=== PATIENT | male | born 1990 | race Caucasian/White ===

== ENCOUNTER → 2021-08-12 16:34 | Outpatient (CLI) | payer OTHER, SELFPAY ==
[2021-08-14 12:27] LABS: HIV Screen 4th Generation wRfx Non Reactive (Non Reactive); Hep A Ab, IgM Negative (Negative); Hepatitis B Core Antibody IgM Negative (Negative); Hepatitis B Surface Antigen Negative (Negative); Hepatitis C Antibody <0.1 s/co ratio (0.0-0.9)
== END ==
PROVIDERS: PCP Student in an Organized Health Care Education/Training Program; Visit Provider Student in an Organized Health Care Education/Training Program
DX: Z77.21 Contact with and (suspected) exposure to potentially hazardous body fluids (principal)
CPT/HCPCS: 80074; 86703; G0432

== ENCOUNTER → 2021-11-29 13:39 | Outpatient (CLI) | payer OTHER, SELFPAY ==
[2021-12-01 11:12] LABS: HIV Screen 4th Generation wRfx Non Reactive (Non Reactive)
[2021-12-01 13:31] LABS: Hep A Ab, IgM Negative (Negative); Hepatitis B Core Antibody IgM Negative (Negative); Hepatitis B Surface Antigen Negative (Negative); Hepatitis C Antibody <0.1 s/co ratio (0.0-0.9)
== END ==
PROVIDERS: Visit Provider Emergency Medicine
DX: Z77.21 Contact with and (suspected) exposure to potentially hazardous body fluids (principal)
CPT/HCPCS: 36415; 86703; 86704; 86708; 87340; 87380; G0432

== ENCOUNTER 2021-12-13 10:48 | Observation (INO) | payer OTHER, SELFPAY ==
[2021-12-13] VITALS (28 sets, daily range): BP systolic 112–150; BP diastolic 54–95; PULSE 56–103; RESP 14–20; TEMP 36.4–43; O2SAT 91–98; BMI 28.2; BMI 28.3; BMI 28.5
--- NOTE | 2021-12-13 11:43 | HMH.EDUTC ---
[facility] [place] Disposition Clinical Impression: Acute appendicitis Qualifiers: Acute appendicitis type: with localized peritonitis Appendicitis gangrene presence: without gangrene Appendicitis perforation presence: without perforation Appendicitis abscess presence: without abscess Qualified Code(s): K35.30 - Acute appendicitis with localized peritonitis, without perforation or gangrene Disposition: Still a Patient Condition on Discharge: Good Referrals: Provider,Referral, [Primary Care Provider] - Medical Decision Making - Cuong Inquiry Pt receiving controlled substance: No Cuong was queried for this patient: No Vital Signs: 12/13/21 11:19 12/13/21 12:47 12/13/21 12:48 Temperature 99.0 F 99 F Temperature Source Oral Oral Pulse Rate Pulse Rate [Left Radial] 80 72 Respiratory Rate 18 14 Blood Pressure 150/84 H Blood Pressure [Left Arm] 133/79 150/84 H Blood Pressure Mean 97 Blood Pressure Mean [Left Arm] 97 106 Blood Pressure Source [Left Arm] Automatic Cuff Blood Pressure Position [Left Arm] Sitting Sitting 02 Sat by Pulse Oximetry 98 98 Oxygen Delivery Method Room Air Room Air 12/13/21 13:01 12/13/21 13:30 12/13/21 13:55 Temperature Temperature Source Pulse Rate 56 L Pulse Rate [Left Radial] Respiratory Rate Blood Pressure 122/54 L 120/60 120/60 Blood Pressure [Left Arm] Blood Pressure Mean 85 80 Blood Pressure Mean [Left Arm] Blood Pressure Source [Left Arm] Blood Pressure Position [Left Arm] 02 Sat by Pulse Oximetry Oxygen Delivery Method - Lab Data Lab Results 12/13/21 12:33: Urine Color Yellow, Urine Appearance Clear, Urine pH 6.0, Ur Specific [place] >= 1.030, Urine Protein Negative, Urine Glucose (UA) Negative, Urine Ketones Negative, Urine Blood Negative, Urine Nitrate Negative, Urine Bilirubin Negative, Urine Urobilinogen 2.0, Ur Leukocyte Esterase Negative, Urine RBC Occasional, Urine WBC None, Ur Squamous Epith Cells Occasional, Urine Bacteria Trace 12/13/21 12:33: WBC 7.1, RBC 5.60, Hgb 17.0, Hct 48.2, MCV 86.1, MCH 30.4, MCHC 35.4, RDW 12.7, Plt Count 297, MPV 8.2, Neut % (Auto) 70.2, Lymph % (Auto) 19.8, [place] % (Auto) 7.0, Eos % (Auto) 2.3, Baso % (Auto) 0.7, Neut # (Auto) 5.0, Lymph # (Auto) 1.4, [place] # (Auto) 0.5, Eos # (Auto) 0.2, Baso # (Auto) 0.1 12/13/21 12:33: Sodium 141, Potassium 4.1, Chloride 102, Carbon Dioxide 31 H, Anion Gap 12.1, BUN 12, Creatinine 1.10, Estimated Creat Clear 137, Estimated GFR 78, Est GFR ( Amer) 94, Glucose 103 H, Calcium 8.7, Total Bilirubin 0.8, AST 48, ALT 61, Alkaline Phosphatase 82, Total Protein 7.8, Albumin 4.8, Globulin 3.0, Albumin/Globulin Ratio 1.6, Amylase 87, Lipase 250 12/13/21 14:08: SARS-CoV-2 (PCR) Not detected, Influenza A Untype (PCR) Not detected, Influenza Type B (PCR) Not detected Result diagrams: 12/13/21 12:33 12/13/21 12:33 Orders (Tests/Meds): ED MEDICATIONS Generic Name Dose Route Start Last Admin Trade Name Freq PRN Reason Stop Dose Admin Sodium Chloride 10 ml 12/13/21 12:11 Sodium Chloride 0.9% 10ml Flush Syringe IV 01/12/22 12:10 NEEDED PRN Maintain IV Site Discontinued Medications Generic Name Dose Route Start Last Admin Trade Name Freq PRN Reason Stop Dose Admin Sodium Chloride 1,000 mls @ 999 mls/hr 12/13/21 12:14 12/13/21 12:48 Sod Chlor 0.9% 1000ml Bag IV 12/13/21 13:14 999 mls/hr .Q1H1M ONE Administration Iopamidol 75 ml 12/13/21 12:44 12/13/21 12:45 Iopamidol-370 (76%);100ml Bottle IV 12/13/21 12:45 75 ml ONCE ONE Administration Ondansetron HCl 4 mg 12/13/21 12:14 12/13/21 12:48 Ondansetron 4mg/2ml Vial IV 12/13/21 12:15 4 mg ONCE ONE Administration Sodium Chloride 10 ml 12/13/21 12:44 12/13/21 12:45 Sodium Chloride 0.9% 10ml Syr (Rad Only) IV 12/13/21 12:45 10 ml ONCE ONE Administration ORDERS Category Date Time Status Consult to General Surgery [CONS] Stat Cons 12/13/21 14:24
--- NOTE | 2021-12-13 12:10 | PC.NURSE ---
Sent to ED for further eval. Report given to Liya Tellez,RN
--- NOTE | 2021-12-13 12:11 | CT_ITS ---
FINAL REPORT TECHNIQUE: After the administration of oral and intravenous contrast, axial images were obtained through the abdomen and pelvis by computed tomography. The study was performed with techniques to keep radiation dose as low as reasonably achievable, (ALARA). Individual dose reduction techniques using automated exposure control or adjustment of mA and/or kV according to the patient's size were employed. CLINICAL HISTORY: RLQ pain, nausea, dark stool FINDINGS: Abdomen: The lung bases are clear. The liver parenchyma is homogeneous. The gallbladder is present. The spleen, pancreas, adrenals and kidneys appear unremarkable. The aorta is normal in caliber. There is no free fluid or adenopathy. There is a minimal sliding-type hiatal hernia. Pelvis: The appendix is abnormally enlarged measuring 1.4 cm in diameter with surrounding inflammatory reaction. Findings are consistent with acute uncomplicated appendicitis. The urinary bladder is unremarkable. There is no free fluid or adenopathy. IMPRESSION: Acute uncomplicated appendicitis. Prompt surgical evaluation is recommended. Reviewed, Interpreted and Dictated by Marcial Caldera MD Transcribed by Radha Alston Authenticated by Marcial Caldera MD on 12/13/2021 01:57:05 PM [facility]
--- NOTE | 2021-12-13 12:42 | PC.NURSE ---
Patient in Radiology
[2021-12-13 12:43] LABS: Appearance,Urine CLEAR (Clear); Bilirubin,Urine Negative (Negative); Blood, Urine Negative (Negative); Color,Urine YELLOW (Yellow); Glucose,Urine (UA) Negative (Negative); Ketones,Urine Negative (Negative); Leukocyte Esterase,Urine Negative (Negative); Microscopic, Urine URINE MICROSCOPIC (MICROSCOPIC); Nitrate,Urine Negative (Negative); Protein,Urine Negative (Negative); Specific Gravity, Urine >= 1.030 (1.005-1.030)
--- NOTE | 2021-12-13 12:44 | PC.NURSE ---
Patient back from radiology
[2021-12-13 12:46] LABS: Basophils # 0.1 K/mm3 (0-0.2); Basophils % 0.7 % (0.1-2.0); Eosinophils # 0.2 K/mm3 (0.0-0.4); Eosinophils % 2.3 % (0.1-12.0); Hematocrit 48.2 % (42.0-52.0); Lymphocytes # 1.4 K/mm3 (0.7-4.5); Lymphocytes % 19.8 % (10-50); Mean Corpuscular HGB Conc 35.4 g/dL (31.8-35.4); Mean Corpuscular Hemoglobin 30.4 pg (27.0-31.2); Mean Corpuscular Volume 86.1 fl (80-94); Mean Platelet Volume 8.2 fl (7.4-10.4); Monocytes # 0.5 K/mm3 (0.1-1.0); Neutrophils % 70.2 % (37.0-80.0); Platelet Count 297 K/mm3 (142-424); Red Cell Distribution Width 12.7 % (11.5-17.5); White Blood Count 7.1 K/mm3 (4.8-10.8)
[2021-12-13 12:54] LABS: Alanine Aminotransferase 61 U/L (12-78); Albumin Level 4.8 g/dl (3.5-5.0); Albumin/Globulin Ratio 1.6 (1.1-1.8); Alkaline Phosphatase 82 U/L (38-126); Amylase 87 U/L (30-110); Anion Gap 12.1 mEq/L (5-15); Aspartate Amino Transferase 48 U/L (17-59); Bilirubin,Total 0.8 mg/dl (0.2-1.3); Blood Urea Nitrogen 12 mg/dl (9-20); Calcium 8.7 mg/dl (8.4-10.2); Carbon Dioxide 31 mmol/L (22.0-30.0); Chloride 102 mmol/L (98-107); Creatinine Clearance Estimated 137 mL/min (50-200); Estimated Glomerular Filt Rate 78 ml/min (>60); GFR (African American) 94 ML/MIN (>60); Glucose 103 mg/dl (74-100); Lipase 250 U/L (23-300); Potassium 4.1 mmoL/L (3.5-5.1); Sodium 141 mmol/L (136-145); Total Protein,Serum 7.8 g/dl (6.3-8.2)
[2021-12-13 13:04] LABS: Bacteria,Urine Trace /lpf; RBC,Urine Occasional #/hpf (0-3); Squamous Epithelial Cell,Urine Occasional #/hpf (0-5)
--- NOTE | 2021-12-13 13:10 | HMH.EDGENADL ---
ED Disposition Clinical Impression: Acute appendicitis Qualifiers: Acute appendicitis type: with localized peritonitis Appendicitis gangrene presence: without gangrene Appendicitis perforation presence: without perforation Appendicitis abscess presence: without abscess Qualified Code(s): K35.30 - Acute appendicitis with localized peritonitis, without perforation or gangrene Disposition: Still a Patient Condition on Discharge: Fair Referrals: Provider,Referral, [Primary Care Provider] - - Critical Care Critical Care Time: No Attestation: On 12/13/21, the high probability of a clinically significant, sudden or life threatening deterioration of the following system(s) required my full and direct attention, intervention and personal management. The time I documented below is in addition to time spent performing reported procedures but includes the following listed in this critical care notation. Medical Decision Making - Cuong Inquiry Pt receiving controlled substance: No Vital Signs: 12/13/21 11:19 12/13/21 12:47 12/13/21 12:48 Temperature 99.0 F 99 F Temperature Source Oral Oral Pulse Rate Pulse Rate [Left Radial] 80 72 Respiratory Rate 18 14 Blood Pressure 150/84 H Blood Pressure [Left Arm] 133/79 150/84 H Blood Pressure Mean 97 Blood Pressure Mean [Left Arm] 97 106 Blood Pressure Source [Left Arm] Automatic Cuff Blood Pressure Position [Left Arm] Sitting Sitting 02 Sat by Pulse Oximetry 98 98 Oxygen Delivery Method Room Air Room Air 12/13/21 13:01 12/13/21 13:30 12/13/21 13:55 Temperature Temperature Source Pulse Rate 56 L Pulse Rate [Left Radial] Respiratory Rate Blood Pressure 122/54 L 120/60 120/60 Blood Pressure [Left Arm] Blood Pressure Mean 85 80 Blood Pressure Mean [Left Arm] Blood Pressure Source [Left Arm] Blood Pressure Position [Left Arm] 02 Sat by Pulse Oximetry Oxygen Delivery Method - Lab Data Lab Results 12/13/21 12:33: Urine Color Yellow, Urine Appearance Clear, Urine pH 6.0, Ur Specific [place] >= 1.030, Urine Protein Negative, Urine Glucose (UA) Negative, Urine Ketones Negative, Urine Blood Negative, Urine Nitrate Negative, Urine Bilirubin Negative, Urine Urobilinogen 2.0, Ur Leukocyte Esterase Negative, Urine RBC Occasional, Urine WBC None, Ur Squamous Epith Cells Occasional, Urine Bacteria Trace 12/13/21 12:33: WBC 7.1, RBC 5.60, Hgb 17.0, Hct 48.2, MCV 86.1, MCH 30.4, MCHC 35.4, RDW 12.7, Plt Count 297, MPV 8.2, Neut % (Auto) 70.2, Lymph % (Auto) 19.8, [place] % (Auto) 7.0, Eos % (Auto) 2.3, Baso % (Auto) 0.7, Neut # (Auto) 5.0, Lymph # (Auto) 1.4, [place] # (Auto) 0.5, Eos # (Auto) 0.2, Baso # (Auto) 0.1 12/13/21 12:33: Sodium 141, Potassium 4.1, Chloride 102, Carbon Dioxide 31 H, Anion Gap 12.1, BUN 12, Creatinine 1.10, Estimated Creat Clear 137, Estimated GFR 78, Est GFR ( Amer) 94, Glucose 103 H, Calcium 8.7, Total Bilirubin 0.8, AST 48, ALT 61, Alkaline Phosphatase 82, Total Protein 7.8, Albumin 4.8, Globulin 3.0, Albumin/Globulin Ratio 1.6, Amylase 87, Lipase 250 Result diagrams: 12/13/21 12:33 12/13/21 12:33 Orders (Tests/Meds): ED MEDICATIONS Generic Name Dose Route Start Last Admin Trade Name Freq PRN Reason Stop Dose Admin Sodium Chloride 10 ml 12/13/21 12:11 Sodium Chloride 0.9% 10ml Flush Syringe IV 01/12/22 12:10 NEEDED PRN Maintain IV Site Discontinued Medications Generic Name Dose Route Start Last Admin Trade Name Freq PRN Reason Stop Dose Admin Sodium Chloride 1,000 mls @ 999 mls/hr 12/13/21 12:14 12/13/21 12:48 Sod Chlor 0.9% 1000ml Bag IV 12/13/21 13:14 999 mls/hr .Q1H1M ONE Administration Iopamidol 75 ml 12/13/21 12:44 12/13/21 12:45 Iopamidol-370 (76%);100ml Bottle IV 12/13/21 12:45 75 ml ONCE ONE Administration Ondansetron HCl 4 mg 12/13/21 12:14 12/13/21 12:48 Ondansetron 4mg/2ml Vial IV 12/13/21 12:15 4 mg ONCE ONE Administratio
[2021-12-13 14:11] LABS: Coronavirus 19, PCR Not Detected (NotDetected); Influenza A, PCR Not Detected (NotDetected); Influenza B, PCR Not Detected (NotDetected)
--- NOTE | 2021-12-13 14:16 | PC.NURSE ---
MD at bedside for POC; corrosion control technician surgeon paged
--- NOTE | 2021-12-13 14:21 | PC.NURSE ---
Patient ambulatory to restroom
--- NOTE | 2021-12-13 14:41 | PC.NURSE ---
on phone with Dr. Davis
--- NOTE | 2021-12-13 16:12 | HMH.ANESCL ---
[facility] Anesthesia Checklist - Patient Identification Patient Identification: Arm Band - Structural Data Admitted From: Emergency Dept Planned Operative Procedure/s: Lap. appendectomy Consent for Planned Operative Procedure(s) Verified: Yes - NPO Status Verified Time NPO: 00:00 - Airway Assessment C-Spine Mobility Assessed: Yes TMJ Mobility Assessed: Yes Dentition: Good Dentition - Neurological Assessment Level of Consciousness: Awake Hx Seizures: No Numbness or tingling in extremities: No - Anesthesia Plan Anesthesia Risk discussed: Yes Anesthesia Plan: Verified ASA Class: I Anesthesia Type: General [facility] History I have reviewed the patient's past medical history: Yes *Have you ever received a pneumonia vaccine?: No *Have you received a flu vaccine this season?: No Anesthesia experience/problems:: None - *Social History Smoking Status: Never smoker Alcohol Intake: current Substance Use Type: denies use *Occupational Status:: employed *Travel in the last 8 weeks: None Family Hx:: Unable to obtain
--- NOTE | 2021-12-13 17:03 | HMH.GSHP ---
HPI HPI: This is a 30-year-old gentleman who presented to emergency department with increasing right lower quadrant abdominal pain. Radiographic evidence consistent with appendicitis was noted per CT scan. The surgical service was consulted for evaluation and management. [facility] History Medical History: Denies:: Seizures *Have you ever received a pneumonia vaccine?: No *Have you received a flu vaccine this season?: No Anesthesia experience/problems:: None - *Social History Smoking Status: Never smoker Alcohol Intake: current Substance Use Type: denies use *Occupational Status:: employed *Travel in the last 8 weeks: None Family Hx:: Unable to obtain Review of Systems - Constitutional Denies chills - Eyes Denies change in vision - ENT Denies difficulty swallowing - *Cardiovascular Denies chest pain - *Respiratory Denies cough - *Gastrointestinal Reports abdominal pain, Reports nausea - *Genitourinary Denies difficulty urinating - *Musculoskeletal Denies abnormal walking - Integumentary/Breasts Denies new lesions - *Neurologic Denies behavioral changes - Psychiatric Denies anxiety - Endocrine Denies cold intolerance - Hematologic/Lymphatic Denies easy bleeding - Allergic/Immunologic Denies GI upset with certain foods Meds Home Medications Medication Instructions Recorded Confirmed Type No Known Home Medications 12/13/21 12/13/21 History Allergies Allergy/AdvReac Type Severity Reaction Status Date / Time No Known Allergies Allergy Verified 12/13/21 14:58 Exam Vital signs and Labs for Last 24 Hours: Temp Pulse Resp BP Pulse Ox 99 F 78 16 112/78 98 12/13/21 14:48 12/13/21 14:48 12/13/21 14:48 12/13/21 14:48 12/13/21 12:48 Laboratory Results - last 24 hr 12/13/21 12:33: Urine Color Yellow, Urine Appearance Clear, Urine pH 6.0, Ur Specific [place] >= 1.030, Urine Protein Negative, Urine Glucose (UA) Negative, Urine Ketones Negative, Urine Blood Negative, Urine Nitrate Negative, Urine Bilirubin Negative, Urine Urobilinogen 2.0, Ur Leukocyte Esterase Negative, Urine RBC Occasional, Urine WBC None, Ur Squamous Epith Cells Occasional, Urine Bacteria Trace 12/13/21 12:33: WBC 7.1, RBC 5.60, Hgb 17.0, Hct 48.2, MCV 86.1, MCH 30.4, MCHC 35.4, RDW 12.7, Plt Count 297, MPV 8.2, Neut % (Auto) 70.2, Lymph % (Auto) 19.8, [place] % (Auto) 7.0, Eos % (Auto) 2.3, Baso % (Auto) 0.7, Neut # (Auto) 5.0, Lymph # (Auto) 1.4, [place] # (Auto) 0.5, Eos # (Auto) 0.2, Baso # (Auto) 0.1 12/13/21 12:33: Sodium 141, Potassium 4.1, Chloride 102, Carbon Dioxide 31 H, Anion Gap 12.1, BUN 12, Creatinine 1.10, Estimated Creat Clear 137, Estimated GFR 78, Est GFR ( Amer) 94, Glucose 103 H, Calcium 8.7, Total Bilirubin 0.8, AST 48, ALT 61, Alkaline Phosphatase 82, Total Protein 7.8, Albumin 4.8, Globulin 3.0, Albumin/Globulin Ratio 1.6, Amylase 87, Lipase 250 12/13/21 14:08: SARS-CoV-2 (PCR) Not detected, Influenza A Untype (PCR) Not detected, Influenza Type B (PCR) Not detected I & O for Last 24 hours: Intake & Output 12/11/21 12/12/21 12/13/21 12/14/21 11:59 11:59 11:59 11:59 Weight 220 lb 221 lb - Constitutional no acute distress - *Routine HEENT Exam Head: Present: normocephalic Eye: Present: EOMI ENT: Present: mucous membranes moist - *Routine Neck Exam Present: full ROM - Routine Chest/Breast/Axilla Exam Chest wall: Absent: tenderness - *Routine Respiratory Exam Absent: respiratory distress - *Routine Cardiovascular Exam Present: RRR - *Routine Abdominal Exam Present: soft, tenderness - *Routine Rectal Exam Rectal:: deferred - *Routine Genitalia Exam Genitalia:: deferred - *Routine Extremities Exam Present: full ROM - Routine Back/Spine/Pelvis Exam Back/Spine: Present: full ROM - *Routine Skin Exam Present: intact - *Routine Neurological Exam Present: alert, oriented X3 - Routine Psychiatric Exam Present: normal affect Result
--- NOTE | 2021-12-13 17:06 | HMH.OPNOTE ---
Date of procedure: 12/13/21 Pre-op Diagnosis:: Appendicitis Post-op Diagnosis:: Suppurative appendicitis Procedure performed:: Laparoscopic appendectomy Surgeon:: Pavna Davis MD ECOTHERAPIST:: Sue Cain Anesthesia: GETA Estimated blood loss (mL): 15 Operative findings:: Severe suppurative appendicitis No definitive perforation Dense adhesions between appendix and cecum Dense adhesions between appendix and small bowel Dense adhesions between cecum and lateral sidewall Operative note:: After informed consent was obtained the patient was taken to the operating room and placed in the supine position. General anesthesia was induced and his abdomen was prepped and draped in a sterile fashion. After infiltration local anesthetic a supraumbilical incision was made. A Veress needle was placed in position. The abdomen was insufflated. A 12 mm optical trocar was placed in position. Under direct visualization a 5 mm trocar was placed in the suprapubic position and an additional 5 mm trocar was placed in the left lower quadrant. Severe inflammatory changes throughout the right lower abdomen noted. The cecum and right colon were densely adhered to the lateral sidewall. The appendix was thickened and severely inflamed and essentially encased and inflammatory changes between the cecum and small bowel. Elevation of the appendix was exceptionally difficult. No obvious small bowel or colonic injury noted. No obvious injury to the ureter. A combination of blunt dissection and harmonic german were utilized to free the mesoappendix with continued elevation of the appendix. The junction of the appendix and the cecum was not mobile secondary to above-stated dense adhesions. The [place] stapling device was utilized to transect the appendix at its base. Again, no obvious cecal injury noted. The appendix was placed in a retrieval bag and removed through the supraumbilical trocar site. The right lower quadrant and pelvis were thoroughly irrigated. No active bleeding or sign of injury noted. No apparent abscess collections. Pneumoperitoneum was released as the trocars were removed. Fascia at the supraumbilical trocar site was reapproximated with 0 Ethibond. All wounds were irrigated and skin was closed with 4-0 Monocryl. Dressings were applied and the patient was transferred to recovery in stable condition. Condition: stable Disposition: PACU Specimens:: Appendix Complications:: No immediate
--- NOTE | 2021-12-13 17:13 | HMH.ANESI ---
[facility] Anesthesia Record Part I Intake, IV Amount: 900 Estimated blood loss (mL): 15 Urine output (mL): 150 Blood Pressure: 127/84 SaO2: 95 Pulse Rate: 72 Respiratory Rate: 20 Temperature: 97.8 F Patient is:: Drowsy, Oral/Nasal airway Stable to PACU at:: 17:11
--- NOTE | 2021-12-13 18:12 | PC.NURSE ---
Report received from Anjelica GREENBERG RN.
--- NOTE | 2021-12-13 18:22 | PC.NURSE ---
Pt arrived to the floor at this time
--- NOTE | 2021-12-13 18:30 | SUR.PHASEI ---
182 Detailed report provided to Dorita Kelley RN. Pt transported to med/surg room. Pt left in stable condition.
[2021-12-13 19:36] LABS: Microscopic,Cath URINE MICROSCOPIC (MICROSCOPIC)
--- NOTE | 2021-12-13 20:59 | HMH.PHAVTE ---
[facility] Pharmacy VTE Monitoring - Patient Demographics Admission date: 12/13/21 Report Date: 12/13/21 Time: 20:59 Allergies/Adverse Reactions: Patient Allergies No Known Allergies Allergy (Verified 12/13/21 14:58) Height: 1.88 m Weight: 100.244 kg Patient Problems: Current Active Problems Acute appendicitis (Acute) - VTE Risk Labs: VTE Related Lab Results Hgb 17.0 g/dL (14.1-18.0) 12/13/21 12:33 Hct 48.2 % (42.0-52.0) 12/13/21 12:33 Plt Count 297 K/mm3 (142-424) 12/13/21 12:33 BUN 12 mg/dl (9-20) 12/13/21 12:33 Creatinine 1.10 mg/dl (0.66-1.25) 12/13/21 12:33 Estimated Creat Clear 137 mL/min (50-200) 12/13/21 12:33 Clinical Trial Participant: No - Prophylaxis VTE Prophylaxis Ordered?: Yes Types of VTE Prophylaxis: IPCS Knee High (POST OP) Location of Applied Device: Refused
[2021-12-13 21:13] LABS: Appearance,Urine/Cath CLEAR (Clear); Bilirubin,Cath Negative (Negative); Blood, Urine/Cath Negative (Negative); Color,Urine/Cath YELLOW (Yellow); Glucose,Urine/Cath (UA) Negative (Negative); Ketones,Urine/Cath Negative (Negative); Leukocyte Esterase,Cath Negative (Negative); Nitrate,Cath Negative (Negative); Protein,Urine/Cath Negative (Negative); Urobilinogen,Cath 0.2 EU/dl (0.2)
[2021-12-13 21:33] LABS: WBC,Urine/Cath Occasional #/hpf (0-3)
[2021-12-14 00:10] VITALS: BP 135/75; PULSE 70; RESP 16; TEMP 37; O2SAT 98
[2021-12-14 01:10] VITALS: BP 117/67; PULSE 59; RESP 14; TEMP 36.8; O2SAT 96
[2021-12-14 04:00] VITALS: BP 121/67; PULSE 76; RESP 18; TEMP 36.6; O2SAT 97
--- NOTE | 2021-12-14 06:44 | PC.NURSE ---
Pt pleasant and cooperative t/o shift, a+o x4. Pt has c/o pain/tenderness in abdomen 2x t/o shift. 5mg [place] administered with favorable results. Eager to advance diet. Call light within reach.
[2021-12-14 06:52] LABS: Basophils % 0.1 % (0.1-2.0); Mean Platelet Volume 8.3 fl (7.4-10.4); Monocytes # 0.5 K/mm3 (0.1-1.0)
[2021-12-14 07:01] LABS: Hematocrit 41.1 % (42.0-52.0); Lymphocytes % 10.3 % (10-50); Mean Corpuscular HGB Conc 34.5 g/dL (31.8-35.4); Monocytes % 5.2 % (1.7-9.3); Neutrophils % 84.4 % (37.0-80.0); Platelet Count 278 K/mm3 (142-424); Red Blood Count 4.73 M/mm3 (4.60-6.20); Red Cell Distribution Width 12.6 % (11.5-17.5); White Blood Count 9.5 K/mm3 (4.8-10.8)
[2021-12-14 07:02] LABS: Hemoglobin 14.2 g/dL (14.1-18.0)
--- NOTE | 2021-12-14 07:24 | P.PN_ITS ---
Subjective Patient reports: feels better Progress Note: A&P (1) Suppurative appendicitis Status: Acute Assessment and plan: Overall, doing well status post laparoscopic appendectomy. Full liquid diet ordered Continue IV antibiotics Possible discharge home later today with close outpatient follow-up Exam Vital signs and Labs for Last 24 Hours: Temp Pulse Resp BP Pulse Ox 97.8 F 76 18 121/67 97 12/14/21 04:00 12/14/21 04:00 12/14/21 04:00 12/14/21 04:00 12/14/21 04:00 Laboratory Results - last 24 hr 12/13/21 12:33: Urine Color Yellow, Urine Appearance Clear, Urine pH 6.0, Ur Specific [place] >= 1.030, Urine Protein Negative, Urine Glucose (UA) Negative, Urine Ketones Negative, Urine Blood Negative, Urine Nitrate Negative, Urine Bilirubin Negative, Urine Urobilinogen 2.0, Ur Leukocyte Esterase Negative, Urine RBC Occasional, Urine WBC None, Ur Squamous Epith Cells Occasional, Urine Bacteria Trace 12/13/21 12:33: WBC 7.1, RBC 5.60, Hgb 17.0, Hct 48.2, MCV 86.1, MCH 30.4, MCHC 35.4, RDW 12.7, Plt Count 297, MPV 8.2, Neut % (Auto) 70.2, Lymph % (Auto) 19.8, [place] % (Auto) 7.0, Eos % (Auto) 2.3, Baso % (Auto) 0.7, Neut # (Auto) 5.0, Lymph # (Auto) 1.4, [place] # (Auto) 0.5, Eos # (Auto) 0.2, Baso # (Auto) 0.1 12/13/21 12:33: Sodium 141, Potassium 4.1, Chloride 102, Carbon Dioxide 31 H, Anion Gap 12.1, BUN 12, Creatinine 1.10, Estimated Creat Clear 137, Estimated GFR 78, Est GFR ( Amer) 94, Glucose 103 H, Calcium 8.7, Total Bilirubin 0.8, AST 48, ALT 61, Alkaline Phosphatase 82, Total Protein 7.8, Albumin 4.8, Globulin 3.0, Albumin/Globulin Ratio 1.6, Amylase 87, Lipase 250 12/13/21 14:08: SARS-CoV-2 (PCR) Not detected, Influenza A Untype (PCR) Not detected, Influenza Type B (PCR) Not detected 12/13/21 15:42: Urine Color Yellow, Urine Appearance Clear, Urine pH 6.0, Ur Specific [place] 1.020, Urine Protein Negative, Urine Glucose (UA) Negative, Urine Ketones Negative, Urine Blood Negative, Urine Nitrate Negative, Urine Bilirubin Negative, Urine Urobilinogen 0.2, Ur Leukocyte Esterase Negative, Urine RBC None, Urine WBC Occasional, Ur Squamous Epith Cells None, Urine Bacteria None 12/14/21 06:03: WBC 9.5 D, RBC 4.73, Hgb 14.2 D, Hct 41.1 L, MCV 87.0, MCH 30.0, MCHC 34.5, RDW 12.6, Plt Count 278, MPV 8.3, Neut % (Auto) 84.4 H, Lymph % (Auto) 10.3, [place] % (Auto) 5.2, Eos % (Auto) 0.0 L, Baso % (Auto) 0.1, Neut # (Auto) 8.0 H, Lymph # (Auto) 1.0, [place] # (Auto) 0.5, Eos # (Auto) 0.0, Baso # (Auto) 0.0 I & O for Last 24 hours: Intake & Output 12/11/21 12/12/21 12/13/21 12/14/21 11:59 11:59 11:59 11:59 Intake Total 900 / 900 Output Total 150 / 150 Balance 750 / 750 Weight 220 lb 222 lb 6.4 oz - Constitutional no acute distress - *Routine Respiratory Exam Absent: respiratory distress - *Routine Cardiovascular Exam Present: RRR - *Routine Abdominal Exam Present: soft Comments: Some postoperative tenderness noted. Dressings intact. No cellulitis.
[2021-12-14 08:00] VITALS: BP 139/70; PULSE 78; RESP 24; TEMP 36.4; O2SAT 98
[2021-12-14 11:59] VITALS: BP 133/71; PULSE 74; RESP 20; TEMP 36.4; O2SAT 97
--- NOTE | 2021-12-14 12:17 | HMH.DCSUM ---
General - General Admission date:: 12/13/21 Discharge date: 12/14/21 HPI HPI: This is a 30-year-old gentleman who presented to emergency department with increasing right lower quadrant abdominal pain. Radiographic evidence consistent with appendicitis was noted per CT scan. The surgical service was consulted for evaluation and management. Hospital Course Hospital Course: The patient underwent laparoscopic appendectomy. Please see operative report for detail. Postoperatively, he convalesced well. He remained afebrile with stable normal vital signs. He was deemed appropriate for discharge on the afternoon of postoperative day 1. A course of Augmentin was ordered at the time of discharge secondary to the suppurative nature of his appendicitis. Objective Vital signs: Temp Pulse Resp BP Pulse Ox 97.6 F 74 20 133/71 97 12/14/21 11:59 12/14/21 11:59 12/14/21 11:59 12/14/21 11:59 12/14/21 11:59 no acute distress - *Routine HEENT Exam Head: Present: normocephalic Eye: Present: EOMI ENT: Present: mucous membranes moist - *Routine Neck Exam Present: full ROM - Routine Chest/Breast/Axilla Exam Chest wall: Absent: tenderness - *Routine Respiratory Exam Absent: respiratory distress - *Routine Cardiovascular Exam Present: RRR - *Routine Abdominal Exam Present: soft, tenderness - *Routine Rectal Exam Patient deferred: visual exam - *Routine Exam Patient deferred: penile exam - *Routine Extremities Exam Present: full ROM - Routine Back/Spine/Pelvis Exam Back/Spine: Present: full ROM - *Routine Skin Exam Absent: erythema - *Routine Neurological Exam Present: alert - Routine Psychiatric Exam Present: normal affect Results Labs on day of discharge: Labs from last 24 hours 12/14/21 12/13/21 12/13/21 06:03 15:42 14:08 WBC 9.5 D RBC 4.73 Hgb 14.2 D Hct 41.1 L MCV 87.0 MCH 30.0 MCHC 34.5 RDW 12.6 Plt Count 278 MPV 8.3 Neut % (Auto) 84.4 H Lymph % (Auto) 10.3 [place] % (Auto) 5.2 Eos % (Auto) 0.0 L Baso % (Auto) 0.1 Neut # (Auto) 8.0 H Lymph # (Auto) 1.0 [place] # (Auto) 0.5 Eos # (Auto) 0.0 Baso # (Auto) 0.0 Sodium Potassium Chloride Carbon Dioxide Anion Gap BUN Creatinine Estimated Creat Clear Estimated GFR Est GFR ( Amer) Glucose Calcium Total Bilirubin AST ALT Alkaline Phosphatase Total Protein Albumin Globulin Albumin/Globulin Ratio Amylase Lipase Urine Color Yellow Urine Appearance Clear Urine pH 6.0 Ur Specific [place] 1.020 Urine Protein Negative Urine Glucose (UA) Negative Urine Ketones Negative Urine Blood Negative Urine Nitrate Negative Urine Bilirubin Negative Urine Urobilinogen 0.2 Ur Leukocyte Esterase Negative Urine RBC None Urine WBC Occasional Ur Squamous Epith Cells None Urine Bacteria None SARS-CoV-2 (PCR) Not detected Influenza A Untype (PCR) Not detected Influenza Type B (PCR) Not detected 12/13/21 12/13/21 12/13/21 12:33 12:33 12:33 WBC 7.1 RBC 5.60 Hgb 17.0 Hct 48.2 MCV 86.1 MCH 30.4 MCHC 35.4 RDW 12.7 Plt Count 297 MPV 8.2 Neut % (Auto) 70.2 Lymph % (Auto) 19.8 [place] % (Auto) 7.0 Eos % (Auto) 2.3 Baso % (Auto) 0.7 Neut # (Auto) 5.0 Lymph # (Auto) 1.4 [place] # (Auto) 0.5 Eos # (Auto) 0.2 Baso # (Auto) 0.1 Sodium 141 Potassium 4.1 Chloride 102 Carbon Dioxide 31 H Anion Gap 12.1 BUN 12 Creatinine 1.10 Estimated Creat Clear 137 Estimated GFR 78 Est GFR ( Amer) 94 Glucose 103 H Calcium 8.7 Total Bilirubin 0.8 AST 48 ALT 61 Alkaline Phosphatase 82 Total Protein 7.8 Albumin 4.8 Globulin 3.0 Albumin/Globulin Ratio 1.6 Amylase 87 Lipase 250 Urine Color Yellow Urine
--- NOTE | 2021-12-14 13:14 | PC.NURSE ---
Pt given discharge instructions. Pt asked if he had any questions/concerns, pt stated no, you answered all my questions . IV removed, discharge paperwork signed. Pt stated his ride will be here around 1330. Charge nurse made aware.
--- NOTE | 2021-12-17 09:00 | HMH.ANESII ---
[facility] Anesthesia Record Part II Discharge Time: 17:51 Destination: floor PACU nurse assessment reviewed?: Yes Patient Condition:: Good Anesthesia Complications:: None Swallowing reflex intact?: Yes Cyanosis?: No Blood Pressure: 128/69 Pulse Rate: 93 Temperature: 98.4 F Mental Status: Alert & Oriented Pain level:: 3 Nausea and/or vomitting:: None Intake, IV Amount: 900
[2021-12-17 09:01] VITALS: BP 128/69; PULSE 93; TEMP 36.9
== END 2021-12-14 13:30 | disposition home or self-care (01) ==
LOC: UTC 11:54 → ER 12:10 → SDC 14:58 → 2ND 16:32
PROVIDERS: Admitting Provider Surgery; Emergency Provider Emergency Medicine; Visit Provider Surgery
PROC: 0DTJ4ZZ Resection of Appendix, Percutaneous Endoscopic Approach (ICD-10-PCS; CPT 44970; principal; 2021-12-13 15:00)
DX: K35.30 Acute appendicitis with localized peritonitis, without perforation or gangrene (principal); Z20.822 Contact with and (suspected) exposure to COVID-19
CPT/HCPCS: 44970; 36415; 74177; 80053; 81001; 82150; 83690; 85025; 96365; 96374; 96375; 96376; 99284; C9803; G0378; J0696; J2405; J2543; Q9967; U0003; U0005

== ENCOUNTER 2024-05-03 11:58 | Emergency (ER) | payer BC, SELFPAY ==
[2024-05-03 11:59] VITALS: BP 150/99; PULSE 70; RESP 13; TEMP 37.1; O2SAT 97; BMI 30.8
[2024-05-03] MEDS: ONDANSETRON 4MG/2ML VIAL 4 MG IV (12:34)
[2024-05-03] MEDS: KETOROLAC 30MG/ML VIAL 30 MG IV (12:34)
[2024-05-03 12:35] LABS: Microscopic, Urine URINE MICROSCOPIC (MICROSCOPIC)
[2024-05-03 12:35] LABS: Basophils # 0.1 K/mm3 (0-0.2); Eosinophils # 0.1 K/mm3 (0.0-0.4); Eosinophils % 2.1 % (0.1-12.0); Hematocrit 44.7 % (42.0-52.0); Hemoglobin 15.5 g/dL (14.1-18.0); Lymphocytes # 1.8 K/mm3 (0.7-4.5); Lymphocytes % 27.9 % (10-50); Mean Corpuscular HGB Conc 34.7 g/dL (31.8-35.4); Mean Corpuscular Volume 86.3 fl (80-94); Monocytes # 0.5 K/mm3 (0.1-1.0); Monocytes % 7.3 % (1.7-9.3); Neutrophils % 61.7 % (37.0-80.0); Platelet Count 276 K/mm3 (142-424); Red Blood Count 5.18 M/mm3 (4.60-6.20); Red Cell Distribution Width 13.6 % (11.5-17.5); White Blood Count 6.5 K/mm3 (4.8-10.8)
[2024-05-03] MEDS: LACTATED RINGERS 1000ML 1,000 ML 999 ML IV (12:35)
[2024-05-03] MEDS: BELLADONNA ALKALOIDS 60 ML ML PO (12:35)
[2024-05-03] MEDS: ACETAMINOPHEN 1,000MG/100ML VIAL 1000 MG IV (12:35)
[2024-05-03 12:36] LABS: Chloride 107 mmol/L (98-107); Potassium 3.9 mmoL/L (3.5-5.1); Sodium 142 mmol/L (136-145)
--- NOTE | 2024-05-03 12:37 | ED_ITS ---
Discharge Plan Disposition Patient Disposition: Home, Self-Care Condition: Good Prescriptions Prescriptions: New famotidine [Pepcid] 20 mg tablet 20 mg PO DAILY 30 Days Qty: 30 0RF ondansetron 4 mg tablet,disintegrating 4 mg PO Q6 PRN (Reason: nausea and vomiting) 4 Days Qty: 16 0RF Referrals Follow up/Referrals: Jonathon Rocha [Primary Care Provider] - See instructions Abdelrahman Lee MD [Staff Physician] - See instructions Activity Restrictions/Add. Instructions Additional Instructions/Restrictions: You have been evaluated in the ED for your complaints. You may follow-up with your PCP in the next 3 to 5 days. Please return to ED for any new or worsening symptoms. Below you will find information for our general surgery clinic. You may follow- up with Dr. Abdelrahman Fisher or Dr. Rosendo Davis for discussion concerning your gallstones and possible gallbladder removal if desired. [phone] Clinical Impressions Clinical Impression: Epigastric pain, Cholelithiasis Instructions Patient Instructions: DI for Acute Abdominal Pain, DI for Gallstones Discharge ED Provider: Chai Chavez Adult HPI General Chief complaint: Abdominal Pain Stated complaint: Abd Pain,states gallbladder Time Seen by Provider: 05/03/24 12:37 Mode of Arrival: Ambulatory Source of Information: Patient Limitations: No Limitations Description of Symptoms (Recalled from ER Triage Doc. by RN): pt presents to ED with c/o midline abdominal pain. pt reports symptoms ongoing intermittently for the past 15 months. pt reports symptoms occur 4-5 times a week, and last approx 1 hour. pt reports last night he ate spicy sausage for supper and symptoms ongoing since then. History of Present Illness HPI narrative: 33-year-old male with past medical history significant for gallstones and GERD, presents today for evaluation concerning right upper quadrant/epigastric pain which he states has been intermittent over the past week. He states that his episode today has lasted for about 3 hours. He has had an episode of N/V in relation to his symptoms. He states that his pain last night began after eating pasta and also notes that during this week his pain has been exacerbated by eating greasy foods. Denies having any fevers, chills, chest pain or shortness of breath. Denies any other abdominal pain, dysuria, hematuria or any other associated symptoms at this time. Related Data Previous Rx's Medication Instructions Recorded famotidine 20 mg tablet (Pepcid) 20 mg PO DAILY 30 days #30 tabs 05/03/24 ondansetron 4 mg disintegrating 4 mg PO Q6 PRN nausea and vomiting 05/03/24 tablet 4 days #16 tabs Allergies Allergy/AdvReac Type Severity Reaction Status Date / Time No Known Allergies Allergy Verified 12/26/21 08:58 [facility] Disclaimer: The information contained in this section may have been updated after the patient was seen, as this information can be updated by other users. Social History Smoking Status: Never smoker alcohol intake: current alcohol intake frequency: holidays/special occasions only substance use type: denies use current occupational status: employed Travel in the last 8 weeks: None ROS Obtained: Yes All systems reviewed & no additional complaints except as documented Physical Exam General General appearance: alert and in no apparent distress Head Head exam: atraumatic and normocephalic Eye Eye exam: Present normal appearance, PERRL and EOMI ENT ENT exam: Present normal oropharynx and mucous membranes moist Neck Neck exam: Present full ROM; Absent meningismus Respiratory Respiratory exam: Absent respiratory distress, wheezes, stridor or accessory muscle use Cardiovascular Cardiovascular exam: Present normal rhythm Abdominal Exam Abdominal exam: Present soft and tenderness; Absent distention, guarding, rebound or rigidity Abdominal tenderness: Present epigastrium Neurological Exam Neurological exam: Present alert, oriented X3 and CN II-XII intact; Absent motor sensory deficit Psychiatric Psychiatric exam: Present normal affect and normal mood Skin Skin exam: Present warm and dry Medical Decision Making Medical Records Medical records reviewed: Yes I reviewed the patient's medical records. Cu[place] Inquiry Pt receiving controlled substance: No Cu[place] was queried for this patient: No Vital Signs: 05/03/24 11:59 Temperature 98.7 F Temperature Source Oral Pulse Rate [Left Radial] 70 Respiratory Rate 13 Blood Pressure [Right Arm] 150/99 H Blood Pressure Mean [Right Arm] 116 02 Sat by Pulse Oximetry 97 Oxygen Delivery Method Room Air Lab Data Lab Results 05/03/24 12:03: Urine Color Yellow, Urine Appearance Clear, Urine pH 6.0, Ur Specific [place] 1.015, Urine Protein Negative, Urine Glucose (UA) Negative, Urine Ketones Negative, Urine Blood Negative, Urine Nitrate Negative, Urine Bilirubin Negative, Urine Urobilinogen 0.2, Ur Leukocyte Esterase Negative, Urine RBC None, Urine WBC Occasional, Ur Squamous Epith Cells Occasional, Urine Bacteria Trace 05/03/24 12:09: WBC 6.5, RBC 5.18, Hgb 15.5, Hct 44.7, MCV 86.3, MCH 30.0, MCHC 34.7, RDW 13.6, Plt Count 276, MPV 9.0, Neut % (Auto) 61.7, Lymph % (Auto) 27.9, [place] % (Auto) 7.3, Eos % (Auto) 2.1, Baso % (Auto) 1.0, Neut # (Auto) 4.0, Lymph # (Auto) 1.8, [place] # (Auto) 0.5, Eos # (Auto) 0.1, Baso # (Auto) 0.1, Sodium 142, Potassium 3.9, Chloride 107, Carbon Dioxide 29, Anion Gap 9.9, BUN 12, Creatinine 1.20, Estimated Creat Clear 132, Estimated GFR 69, Est GFR ( Amer) 83, Glucose 105 H, Calcium 9.8, Total Bilirubin 0.5, AST 44, ALT 80 H, Alkaline Phosphatase 86, Total Protein 7.8, Albumin 4.6, Globulin 3.2, Albumin/Globulin Ratio 1.4, Lipase 264 05/03/24 12:09 05/03/24 12:09 Orders (Tests/Meds): ED MEDICATIONS Discontinued Medications Generic Name Dose Route Start Last Admin Trade Name Freq PRN Reason Stop Dose Admin Acetaminophen 1,000 mg 05/03/24 12:19 05/03/24 12:35 Acetaminophen 1,000mg/100ml Vial IV 05/03/24 12:20 1,000 mg ONCE ONE Administration Belladonna Alkaloids 60 ml 05/03/24 12:19 05/03/24 12:35 Belladonna Alkaloids 60 Ml Ml PO 05/03/24 12:20 60 ml ONCE ONE Administration Lactated Ringer's 1,000 mls @ 999 mls/hr 05/03/24 12:19 05/03/24 12:35 Lactated Ringer's 1000 Ml Bag IV 05/03/24 13:19 999 mls/hr .Q1H1M ONE Administration Ketorolac Tromethamine 30 mg 05/03/24 12:19 05/03/24 12:34 Ketorolac 30mg/Ml Vial IV 05/03/24 12:20 30 mg ONCE ONE Administration Ondansetron HCl 4 mg 05/03/24 12:27 05/03/24 12:34 Ondansetron 4mg/2ml Vial IV 05/03/24 12:28 4 mg ONCE ONE Administration ORDERS Category Date Time Status US RUQ [US abdomen limited] Stat Exams 05/03/24 12:46 Completed Complete Blood Count Auto Diff Stat Lab 05/03/24 12:09 Completed Comprehensive Metabolic Panel Stat Lab 05/03/24 12:09 Completed Lipase Stat Lab 05/03/24 12:09 Completed Urinalysis and Microscopic Stat Lab 05/03/24 12:03 Completed Medical Decision Narrative: 33-year-old male with past medical history significant for gallstones and GERD, presents today for evaluation concerning right upper quadrant/epigastric pain which he states has been intermittent over the past week. He states that his episode today has lasted for about 3 hours. He has had an episode of N/V in relation to his symptoms. He states that his pain last night began after eating pasta and also notes that during this week his pain has been exacerbated by eating greasy foods. On assessment, he was hemodynamically stable and in no acute distress. Afebrile. His chest was clear to auscultation bilaterally. He did have mild epigastric tenderness to palpation. The abdomen was otherwise soft nondistended and nontender to palpation. Other physical exam findings were unremarkable. Differential diagnoses include not limited to cholelithiasis, cholecystitis, gastritis, GERD, gastroenteritis, among others. Did consider ACS however patient does not have any risk factors and is not having any chest pain or shortness of breath at this time. I did give patient a GI cocktail and he states that his symptoms were significantly improved after treatment. No elevation in WBC at 6.5. AST normal at 44. ALT elevated at 80. Total bilirubin of 0.5. No signs of UTI on urinalysis. I did order for a right upper quadrant ultrasound in the setting of patient's symptoms given his history and it showed multiple gallstones without evidence of biliary ductal dilatation. Common bile duct measured 3 mm. No gallbladder wall thickening or pericholecystic fluid. On reassessment the patient remains hemodynamically stable and in no acute distress. He states that his symptoms are much improved after Toradol and GI cocktail. He has been able to tolerate oral intake without difficulty or worsening pain. I discussed ED workup and results with patient. Will provide him with general surgery contact for follow-up in regards to his cholelithiasis and discussion of cholecystectomy if desired. Admonished patient to stay away from foods that aggravate his acid reflux and gallbladder symptoms. He verbalized understanding and agreed with plan. Provided with return to ED precautions. Subsequently discharged hemodynamically stable and in no acute distress Critical Care Critical Care Time Critical Care Time: No
[2024-05-03 12:38] LABS: Appearance,Urine CLEAR (Clear); Bilirubin,Urine Negative (Negative); Blood, Urine Negative (Negative); Color,Urine YELLOW (Yellow); Glucose,Urine (UA) Negative (Negative); Ketones,Urine Negative (Negative); Leukocyte Esterase,Urine Negative (Negative); Nitrate,Urine Negative (Negative); Protein,Urine Negative (Negative); Specific Gravity, Urine 1.015 (1.005-1.030); Urobilinogen,Urine 0.2 EU/dl (0.2)
[2024-05-03 12:38] LABS: Alanine Aminotransferase 80 U/L (12-78); Alkaline Phosphatase 86 U/L (38-126); Anion Gap 9.9 mEq/L (5-15); Aspartate Amino Transferase 44 U/L (17-59); Bilirubin,Total 0.5 mg/dl (0.2-1.3); Blood Urea Nitrogen 12 mg/dl (9-20); Carbon Dioxide 29 mmol/L (22.0-30.0); Creatinine Clearance Estimated 132 mL/min (50-200); Estimated Glomerular Filt Rate 69 ml/min (>60); GFR (African American) 83 ML/MIN (>60); Lipase 264 U/L (23-300)
[2024-05-03 12:39] LABS: Albumin Level 4.6 g/dl (3.5-5.0); Albumin/Globulin Ratio 1.4 (1.1-1.8); Calcium 9.8 mg/dl (8.4-10.2); Globulin 3.2 g/dL (1.3-3.2); Glucose 105 mg/dl (74-100); Total Protein,Serum 7.8 g/dl (6.3-8.2)
--- NOTE | 2024-05-03 12:46 | US_ITS ---
FINAL REPORT TECHNIQUE: Sonographic images of the right upper quadrant were obtained. CLINICAL HISTORY: epigastric/RUQ pain, hx gallstones COMPARISON: None FINDINGS: PANCREAS: Not well-visualized.. LIVER: Increased echogenicity throughout the liver consistent with fatty infiltration of the liver.. No focal hepatic lesion. No intrahepatic biliary ductal dilatation. GALLBLADDER: Multiple gallstones are present in the gallbladder. No gallbladder wall thickening or pericholecystic fluid. COMMON DUCT: 3 mm. Normal for age. RIGHT KIDNEY: The right kidney measures 11.8 cm. There is no hydronephrosis, mass, or stone. FREE FLUID: None. IMPRESSION: Multiple gallstones are present in the gallbladder without evidence of biliary ductal dilatation. Fatty infiltration of the liver. Reviewed, Interpreted and Dictated by Della Kaur MD Transcribed by Opal Null Authenticated and [facility]
[2024-05-03 13:00] LABS: Bacteria,Urine Trace /lpf; Squamous Epithelial Cell,Urine Occasional #/hpf (0-5); WBC,Urine Occasional #/hpf (0-3)
--- NOTE | 2024-05-03 13:28 | PC.NURSE ---
PT IS AT ULTRASOUND AT THIS TIME
--- NOTE | 2024-05-03 14:30 | PC.NURSE ---
Pt asked for some water. Was able to get the pt A GLASS OF WATER
[2024-05-03 16:17] VITALS: BP 150/99; PULSE 70; RESP 18; TEMP 37.1; O2SAT 99
[2024-05-03 16:19] VITALS: BP 150/99; PULSE 73; RESP 16; TEMP 36.4; O2SAT 99
== END 2024-05-03 16:10 | disposition home or self-care (01) ==
PROVIDERS: Emergency Provider Emergency Medicine; PCP Pediatrics
DX: R10.13 Epigastric pain (principal); K80.20 Calculus of gallbladder without cholecystitis without obstruction; R11.2 Nausea with vomiting, unspecified
CPT/HCPCS: 76705; 80053; 81001; 83690; 85025; 96361; 96374; 96375; 99284; J0131; J1885; J2405; J7120

== ENCOUNTER 2024-05-20 08:17 | Day surgery (SDC) | payer BC, SELFPAY ==
[2024-05-17 16:44] VITALS: BMI 30.8
[2024-05-20] VITALS (12 sets, daily range): BP systolic 133–152; BP diastolic 60–98; PULSE 63–88; RESP 12–18; TEMP 36.3–43; O2SAT 92–100; BMI 30.8
[2024-05-20] MEDS: LACTATED RINGERS 1000ML 1,000 ML 25 ML IV (08:31)
[2024-05-20] MEDS: CEFAZOLIN SODIUM 2 GM in 0.9 % SODIUM CHLORIDE 100 ML IV (09:09)
[2024-05-20] MEDS: LIDOCAINE 1% 20ML MDV 20 ML (09:34)
[2024-05-20] MEDS: RINGERS SOLUTION,LACTATED 3,000 ML 25 ML IR (09:34)
--- NOTE | 2024-05-20 10:21 | P.OP_ITS ---
Date of procedure: 05/20/24 Pre-op Diagnosis:: Symptomatic cholelithiasis Post-op Diagnosis:: Chronic calculus cholecystitis Procedure performed:: Laparoscopic cholecystectomy Surgeon:: Pavan Davis MD [employer]:: Dilan Case Anesthesia: GETA Estimated blood loss (mL): 15 Operative findings:: Severe pericholecystic fat stranding with adhesions of the infundibulum to the stomach and small bowel Infundibular thickening Operative note:: After informed consent was obtained, the patient was taken to the operating room and placed in the supine position. General anesthesia was induced and the abdomen was prepped and draped in a sterile fashion. After infiltration with local anesthetic an infraumbilical incision was made. A Veress needle was placed in position. The abdomen was insufflated. A 5 mm optical trocar was placed in position. Under direct visualization, a 12 mm trocar was placed in the subxiphoid position and 2 additional 5 mm trocars were placed in the right upper quadrant. The gallbladder was elevated up and over the liver margin. The tissue around the cystic duct was carefully dissected. Significant adhesions/fat stranding noted throughout the region with adhesions to the stomach and small bowel noted. Careful dissection was utilized to free the adhesions. Once the cystic duct was freed from surrounding tissue 3 clips were placed proximally and the duct was transected with harmonic german. The tissue around the cystic artery was then bluntly dissected. 2 clips were placed proximally and the artery was transected distally with harmonic german. Harmonic german were then utilized to dissect the gallbladder away from the liver margin. The gallbladder was placed in a retrieval bag and removed through the subxiphoid trocar site. The right upper quadrant was thoroughly irrigated. No active bleeding or bile leak was noted. Fascia at the subxiphoid trocar site was reapproximated utilizing 0 Ethibond. The remaining trocars were removed. All wounds were irrigated and skin was closed with 4-0 Monocryl in a subcuticular fashion. Steri-Strips were applied. The patient's anesthetic agents were reversed and extubation was completed prior to transfer to recovery in stable condition. Condition: stable Disposition: PACU Specimens:: Gallbladder Complications:: No immediate
[2024-05-20] MEDS: HYDROMORPHONE 2MG/ML SYRINGE 0.5 MG IV ×4 (11:04→11:19)
[2024-05-20] MEDS: KETOROLAC 30MG/ML VIAL 30 MG IV (11:23)
--- NOTE | 2024-05-20 12:31 | P.PNANES_ITS ---
[facility] Anesthesia Record Part II Anesthesia Record Part II Discharge Time: 11:22 Destination: Surgical Day Care (OP Surgery) PACU nurse assessment reviewed?: Yes Patient Condition:: Good Anesthesia Complications:: None Swallowing reflex intact?: Yes Airway Patency: Patent Cyanosis?: No Blood Pressure: 144/78 SaO2: 98 Respiratory Rate: 18 Pulse Rate: 71 Temperature: 97.4 F Mental Status: Alert & Oriented Pain level:: 4 Nausea and/or vomitting:: None Intake, IV Amount: 0 Hydration: Adequate
--- NOTE | 2024-05-20 17:31 | P.PNANES_ITS ---
[facility] Disclaimer: The information contained in this section may have been updated after the patient was seen, as this information can be updated by other users. Medical History (Updated 05/20/24 @ 10:19 by Pavan Davis MD) Suppurative appendicitis Surgical History History of appendectomy Family History Other No significant family history Social History Smoking Status: Never smoker alcohol intake: current alcohol intake frequency: holidays/special occasions only substance use type: denies use current occupational status: employed Travel in the last 8 weeks: None [facility] Anesthesia Checklist Patient Identification Patient Identification: Arm Band and Family Structural Data Admitted From: Home Planned Operative Procedure/s: Lap [place]. Consent for Planned Operative Procedure(s) Verified: Yes Verified Documents: Surgical Consent and History and Physical NPO Status Verified Time NPO: 00:00 Additional verifications Patient : No Anesthesia Reactions: No Hx Blood Transfusions: No Blood Transfusion Reaction: No Cephalosporin Allergy: No Previous Colonoscopy: No Airway Assessment Mallampati Score:: Class I C-Spine Mobility Assessed: Yes TMJ Mobility Assessed: Yes Dentition: Good Dentition Neurological Assessment Level of Consciousness: Awake, Alert, Appropriate and Follows Commands Hx Seizures: No Numbness or tingling in extremities: No Anesthesia Plan Anesthesia Risk discussed: Yes ASA Class: I Anesthesia Type: General
--- NOTE | 2024-05-20 17:34 | EXP.ANES.I ---
[facility] Anesthesia Record Part I Anesthesia Record I Intake, IV Amount: 850 Hydration: Adequate Estimated blood loss (mL): 15 Urine output (mL): 0 Blood Products used (#): none Blood Pressure: 136/87 SaO2: 93 Pulse Rate: 72 Airway Patency: Patent Respiratory Rate: 12 Temperature: 97.4 F Patient is:: Drowsy and Stable Stable to PACU at:: 10:32
[2024-05-21 08:48] VITALS: BP 144/78; PULSE 71; RESP 18; TEMP 36.3; O2SAT 98
== END 2024-05-20 12:00 | disposition home or self-care (01) ==
PROVIDERS: PCP Pediatrics; Visit Provider Surgery
PROC: 0FT44ZZ Resection of Gallbladder, Percutaneous Endoscopic Approach (ICD-10-PCS; CPT 47562; principal; 2024-05-20 10:15)
DX: K80.20 Calculus of gallbladder without cholecystitis without obstruction (principal); R10.13 Epigastric pain; R11.0 Nausea
CPT/HCPCS: 47562; 96374; J3490; J0690; J1100; J1170; J1885; J2250; J2405; J3010; J7120